=== PATIENT | female | born 1995 | race Caucasian/White ===

== ENCOUNTER 2023-04-23 09:16 | Outpatient (CLI) | payer MEDICAID, SELFPAY ==
[2023-04-23 14:39] LABS: Chlamydia DNA Amplified* NOT DETECTED (No Detected); GC DNA Amplified* NOT DETECTED (No Detected)
== END 2023-04-23 09:17 | disposition home or self-care (01) ==
PROVIDERS: Visit Provider Obstetrics & Gynecology
DX: Z34.93 Encounter for supervision of normal pregnancy, unspecified, third trimester (principal); Z3A.28 28 weeks gestation of pregnancy
CPT/HCPCS: 86592; 86703; 86762; 86803; 86850; 87086; 87340; 87491; 87591

== ENCOUNTER 2023-06-16 11:09 | Outpatient (CLI) | payer MEDICAID, SELFPAY | END 2023-06-16 11:10 | disposition home or self-care (01) | LOC: NFLDREF 06-19 19:58 | PROVIDERS: Visit Provider Obstetrics & Gynecology | DX: Z36.85 Encounter for antenatal screening for Streptococcus B (principal) | CPT/HCPCS: 87081; 87653 ==

== ENCOUNTER 2023-07-03 04:20 | Inpatient (IN) | payer MEDICAID, SELFPAY ==
[2023-07-03] VITALS (29 sets, daily range): BP systolic 111–132; BP diastolic 60–81; PULSE 83–118; RESP 16–18; TEMP 36.4–37.2; O2SAT 98; BMI 33.0
--- NOTE | 2023-07-03 05:39 | P.LDBA_ITS ---
Subjective History of Present Illness Time Seen by Provider: 05:39 Date Seen: 07/03/23 Narrative: Patient is being admitted to Labor and Delivery for PROM. She is a 28 year old at 38 weeks 2 days gestation. Her full history and physical was dictated by Dr. Greene on 06/24/2023. Please see this for details. She states that she woke up at 3:20 a.m. in a pool of fluid. She has noticed contractions that are not particularly painful become frequent since her water broke. She would like to hold off on Pitocin if possible. GBS negative. Specific Issues/Plans [id number] Spouse: Hemant. Son: Rubio Baby: Boy! Greg H&P by [facility] on 06/24/23 UNSTABLE LIE AT 37-38 WEEKS! CHECK PRESENTATION WITH US AT ARRIVAL TO L&D 1. Transfer of care at 24 weeks. * No records regarding labs received. Repeated here 04/23/23, entirely normal. 2. Two first trimester SABs. 3. Last pap 06/05/2020: WNL. Due at her 6 week pp visit. labs: O+ Pap NIL 06/05/20 Ultrasounds: 12/22/22: dating and viability. Eleven weeks, 3 days by CRL. Sonographic NELLIE 07/10/2023. NELLIE by LMP 07/15/2023. Dating by LMP. 02/25/23: anatomy scan. Normal level 1 anatomy, posterior placenta without previa, cervical length 3.6 cm, normal fluid, EFW normal, though percentile not given. 325 g. AC 44.4% and all growth parameters within normal ranges. Tdap: Given, 05/07/23 Flu: declined COVID: declined H&P by [facility] on 06/24/2023 OB - Problem Based A/P Additional Plan (1) PROM (premature rupture of membranes): Status: Acute Plan 1. GBS negative so antibiotic prophylaxis is not needed. 2. Delia is planning an unmedicated delivery. 3. Dr. Alvarado will assume care at 7:00am today. OB Exam Physical Exam Vital signs: Temp Pulse BP 97.7 F 90 125/81 07/03/23 04:19 07/03/23 04:15 07/03/23 04:15 Narrative: GENERAL APPEARANCE: Pleasant, , well-groomed woman in no acute distress. VITAL SIGNS: as noted in nursing notes HEAD: Normocephalic, atraumatic. THYROID: no masses, nodularity, tenderness or enlargement. LUNGS: Clear to auscultation bilaterally without wheezes, rales or rhonchi. HEART: Regular rate and rhythm with normal S1 and S2. No gallop, rub or murmur. ABDOMEN: Gravid. Soft, nontender, nondistended, with normal bowels sounds throughout. EFM: Baseline 130, accelerations present, decelerations absent, reactive. Category 1. TOCO: Q 2-4 minutes patient reports mild. PRESENTATION: Vertex by Vince's maneuvers and bedside ultrasound. SVE per nursin.5 cm/ 50 %/ -2/soft/post. Barajas score: 5 EXTREMITIES: No cyanosis, clubbing, or edema. No varicosities. NEUROLOGIC: Normal gait and balance. Normal deep tendon reflexes at bilateral patella 2+/2, equal without clonus. PSYCHIATRIC: alert and oriented x3. Normal speech pattern, eye contact and affect. SKIN: Warm, dry, and well perfused. Good turgor. No lesions, nodules or rashes.
--- NOTE | 2023-07-03 17:52 | PM.OBPNL ---
Subjective Date Seen: 07/03/23 Narrative: Patient is feeling well and happy with current experience. Objective Vital Signs: Last Vital Signs Temp 98.1 F 07/03/23 16:16 Pulse 118 H 07/03/23 16:17 Resp 18 07/03/23 16:17 BP 132/68 07/03/23 16:16 Pulse Ox 98 07/03/23 11:49 Pelvic Exam Dilation (cm): 3.5 Effacement (%): 80 Station: 0 Contractions Monitor mode: External Contraction pattern: Regular Contraction intensity: Moderate Assessment Station: 0 Tracing Comments: Intermittent monitoring has been normal. Plan Plan: Patient has progressed on her own, she would like to continue labor progress with the least amount of interventions as possible. Would recommend a repeat cervical check at around 8pm.
[2023-07-03] MEDS: LIDOCAINE 1 % PF 30 ML INJECTION (22:25)
--- NOTE | 2023-07-03 22:39 | W.PM.OBVAGDE ---
OB Procedure Vag Delivery Mother Details Mother Details: The patient is a 28 year-old, 2, Para 2, admitted on 07/03/23 at 38 2/7 Days gestation. Patient presents to L&D after SROM at home at around 3am this morning. Patient desired a minimal intervention labor and delivery. She progressed on her own and unmedicated. : 2 Para: 2 Weeks Gestation: 38.2 Admission Date: 07/03/23 Additional Details Amniotic Membrane Status: SROM Amniotic Membrane Rupture Date: 07/03/23 Amniotic Membrane Rupture Time: 03:20 Amniotic Membrane Fluid Description: Clear Analgesia/Anesthesia Type: None Waterbirth: No Pitcoin: No Intrapartal Events: None Labor Onset: 18:36 Complete: 21:57 Pushin:58 Heart: heart tones during second stage in the 140s with intermittent auscultation. Delivery Details Delivery Date: 07/03/23 Delivery Time: 22:16 Route of delivery: Gender: Male Viability: Alive; Heart Rate Present Position at Delivery: OA Delivery Details: Delivered over intact perineum via spontaneous vaginal delivery. was placed on maternal abdomen.? Cord was clamped and cut after a 30-60 second delay. Nose and mouth were bulb suctioned.? Infant weight pending. 1 Minute Interval Total Score: 9 5 Minute Interval Total Score: 9 Additional Details Shoulder Dystocia: No Placenta Delivery Time: 22:21 Placental Delivery Description: Spontaneous Delivery repair: Vicryl Procedure Done: Global Blood Loss: 150 Laceration: Vaginal - 2nd Degree Blood Loss Measurement Type: QBL Bakri Used: No Sponge/Need Count Correct: Yes Cord Vessel Description: 3 Vessels, Nuchal Cord (x2), Around Body (x1) and Delivered through Event Summary Status: Mother and were stable after delivery. Disposition: floor
[2023-07-03] MEDS: CALCIUM CARBONATE 500 MG CHEW PO (23:44)
[2023-07-03] MEDS: ACETAMINOPHEN 500 MG TABLET 1000 MG PO (23:44)
[2023-07-04] VITALS (7 sets, daily range): BP systolic 113–122; BP diastolic 63–84; PULSE 68–96; RESP 16; TEMP 36.5–36.6; O2SAT 97–98
[2023-07-04] MEDS: IBUPROFEN 600 MG TABLET PO ×3 (03:50→19:50)
[2023-07-04] MEDS: ACETAMINOPHEN 500 MG TABLET 1000 MG PO ×3 (07:32→22:23)
[2023-07-04] MEDS: DOCUSATE SODIUM 100 MG CAPSULE PO ×2 (07:33→22:23)
[2023-07-04 08:15] LABS: Hemoglobin* 11.6 gm/dL (12.0-16.0)
--- NOTE | 2023-07-04 10:22 | P.OBPN_ITS ---
OB - PN:Subj Subjective Date Seen: 07/04/23 Patient comments OB post-: no complaints, pain well controlled and tolerating diet infant status: Zwingle feeding status: exclusively Narrative: Delia is a 28 y.o. who was admitted to L & D for delivery after SROM. ?She had an uncomplicated spontaneous vaginal delivery.?The patient feels well. ?The pain is well controlled with current medications. ?She has no new complaints. ?She is and reports things are going well.? the patient has done well.? Vitals have been stable.? She has remained afebrile.? Has a good appetite, is tolerating a general diet. ?She is voiding without difficulty.? She is passing gas and has not had a bowel movement.? She is ambulating and denies any dizziness.? Has small amount of rubra lochia. OB - PN: Obj Exam Physical Exam: Vital signs: Temp Pulse Resp BP Pulse Ox O2 Del Method 97.8 F 68 16 122/65 98 Room Air 07/04/23 08:00 07/04/23 08:00 07/04/23 08:00 07/04/23 08:00 07/04/23 08:00 07/04/23 08:00 Narrative: VITAL SIGNS: As noted above. GENERAL APPEARANCE: Alert, cooperative female in no acute distress. MOOD & AFFECT: Normal. ABDOMEN: Soft, non-distended and appropriately tender, uterus well contracted at umbilicus. : Normal lochia. EXTREMITIES: Nonedematous. Well perfused. Nontender. OB - PN: Obj Data Labs Labs: Laboratory Results - last 24 hr 07/04/23 08:06 Hgb 11.6 L OB - PN: A/P Delivery Assessment and Plan (1) Spontaneous vaginal delivery: Status: Acute Plan day: 1 Plan: routine care
--- NOTE | 2023-07-04 17:39 | PM.OBDSVD1 ---
DS: Providers Provider Date Seen: 07/04/23 Date of admission: 07/03/23 04:20 Primary care physician: Not a Local Provider Admitting Clinician: Akila Greene MD Attending Physician on discharge: Anthony Blackburn MD Date of Discharge: 07/04/23 DS: Diagnosis Discharge Diagnosis (1) Spontaneous vaginal delivery: Status: Acute Exam Narrative: Exam Narrative: GENERAL APPEARANCE:? normal affect, alert, no distress MOOD:? appropriate CHEST:? clear to auscultation HEART:? regular rate and rhythm ABDOMEN:? soft, non-tender the uterine fundus is At Umbilicus, Midline and is appropriate for the stage of recovery. EXTREMITIES:? normal and no edema Const: Vital Signs, click to edit/add: Vital Signs - 24 hr 07/03/23 18:29 07/03/23 19:30 07/03/23 20:00 Temperature 97.5 F L 98.5 F 99.0 F Pulse Rate Pulse Rate [Pulse Oximeter] Respiratory Rate 17 17 Blood Pressure Blood Pressure [Le ft Arm] [facility] 21:00 07/03/23 21:00 07/03/23 22:27 Temperature 98.3 F Pulse Rate 85 116 H Pulse Rate [Pulse Oximeter] Respiratory Rate 18 Blood Pressure 111/60 126/73 Blood Pressure [Le ft Arm] Pulse [facility]xim[facility] 22:42 07/03/23 22:57 07/03/23 23:16 Temperature 98.3 F Pulse Rate 105 H 94 Pulse Rate [Pulse Oximeter] Respiratory Rate 18 Blood Pressure 116/65 120/66 Blood Pressure [Le ft Arm] Pulse Oximetry 98 [facility] 23:17 07/03/23 23:27 07/03/23 23:42 Temperature Pulse Rate 96 96 83 Pulse Rate [Pulse Oximeter] Respiratory Rate Blood Pressure 124/68 120/63 120/68 Blood Pressure [Le ft Arm] Pulse [facility]ximetry [facility] 23:57 07/04/23 00:12 07/04/23 00:27 Temperature Pulse Rate 88 92 96 Pulse Rate [Pulse Oximeter] Respiratory Rate Blood Pressure 114/63 118/66 113/63 Blood Pressure [Le ft Arm] Pulse [facility]ximetry [facility] 07/04/[facility] 03:45 07/04/23 08:00 07/04/23 13:00 Temperature 97.7 F 97.8 F 97.7 F Pulse Rate Pulse Rate [Pulse Oximeter] 90 68 80 Respiratory Rate 16 16 16 Blood Pressure Blood Pressure [Le ft Arm] 114/73 122/65 117/80 Pulse Oximetry 98 98 97 Oxygen Delivery Me thod Room Air Room Air Room Air 07/04/23 16:45 Temperature Pulse Rate Pulse Rate [Pulse Oximeter] 82 Respiratory Rate 16 Blood Pressure Blood Pressure [Le ft Arm] 116/84 Pulse Oximetry 98 Oxygen Delivery Me thod Room Air OB - DS: Summary Hospital Course Hospital Course: The patient is a 28 year old G 2 P 2 at 38 2/7 weeks gestation that was admitted to the Center on 07/03/23 fordelivery after SROM. She had an uncomplicated vaginal delivery. She delivered a viable male infant. She is breast feeding. the patient has done well. Peripartum Data delivery method: Vaginal Laceration description: Vaginal - 2nd Degree complications: none Gender: Male Discharge Plan: Home Status at Discharge Functional status at discharge: independent ambulation Overall status at discharge: patient is progressing back to baseline Time Spent with Patient Time attestation: Total time spent providing and/or coordinating discharge services: Time spent: Less than 30 minutes Discharge Plan Discharge Disposition: Home, Self-Care Date of Admission: 07/03/23 04:20 Attending Provider on Discharge: Prema Blackburn Primary Care Provider: Provider,Not a Local Condition: Stable Anticipated Discharge Date/Time: 07/04/23 23:00 Discharge Medications: New acetaminophen 500 mg Tablet 1,000 mg PO Q6H PRNQty: 30 0RF ibuprofen 600 mg Tablet 600 mg PO Q6H PRNQty: 30 0RF Continued calcium carbonate [Tums] 200 mg calcium (500 mg) tablet,chewable 200 mg PO BID DHA 200 mg capsule 200 mg PO DAILY Discontinued ondansetron HCl 4 mg tablet 4 mg PO Q8H Hold Instructions: not needed Unisom SleepMelts 25 mg tablet,disintegrating 25 mg PO QHS PRN Discharge Orders: Discharge Order (Routine); Ordered 07/04/23 Ordered By: Prema Blackburn Patient Education: OB Vaginal/Breast Feeding Additional Instructions: Follow up in clinic in 2 weeks for mood and follow up. Follow up in clinic in 6 weeks for a regular visit. Activity Level: Activity as Tolerated Activity Detail: Nothing vaginally for 6 weeks Discharge Diet: Regular Follow Up Appointments: Provider,Not a Local [Primary Care Provider] - Forms: [employer] Info Instructions
== END 2023-07-04 23:15 | disposition home or self-care (01) | DRG 807 ==
LOC: OB OUT 04:27 → OB 04:27
PROVIDERS: Obstetrics & Gynecology; Admitting Provider Obstetrics & Gynecology; Visit Provider Obstetrics & Gynecology
DX: O42.02 Full-term premature rupture of membranes, onset of labor within 24 hours of rupture (principal); Z37.0 Single live birth; O70.1 Second degree perineal laceration during delivery; Z3A.38 38 weeks gestation of pregnancy
CPT/HCPCS: 36415; 76815; 85018; A9270; J2001

== ENCOUNTER 2024-05-25 11:13 | Outpatient (CLI) | payer MEDICAID, SELFPAY | END 2024-05-25 11:14 | disposition home or self-care (01) | PROVIDERS: Visit Provider Obstetrics & Gynecology | DX: N93.9 Abnormal uterine and vaginal bleeding, unspecified (principal) | CPT/HCPCS: 80053; 84443; 84703 ==

== ENCOUNTER 2024-07-18 08:03 | Outpatient (CLI) | payer MEDICAID, SELFPAY ==
--- NOTE | 2024-07-18 08:15 | CRLHL7_ITS ---
For Patients: As a result of the Cures Act, medical imaging exams and procedure reports are released immediately into your electronic medical record. You may view this report before your referring provider. If you have questions, please contact your health care provider. INDICATION: First trimester scan, establish dates. COMPARISON: None. TECHNIQUE: Real-time syed-scale imaging of the pelvis was performed. FINDINGS: Sonographic imaging demonstrates a single living intrauterine gestation. The embryo demonstrates a regular cardiac rate measuring 176 beats per minute. The embryo`s crown-rump length measurement of 1.3 cm corresponds to a gestational age of 7 weeks 4 days with a sonographic due date of 03/02/2025. There is a normal-appearing yolk sac. There are no gross abnormalities noted within the embryo at this early state of development. The gestational sac has a normal appearance. There is no evidence of a perigestational hemorrhage. The amount of fluid within the sac appears appropriate for gestational age. The cervix is closed. The myometrium appears normal. The ovaries are of normal size. Corpus luteal cyst left ovary. There are no suspicious fluid collections noted in the cul-de-sac. IMPRESSION: Normal first trimester OB ultrasound exam. Gestational age calculated at 7 weeks 4 days with a sonographic due date of 03/02/2025. Dictated by Albaro Dowling MD @ 07/18/2024 11:48:21 AM (Electronically Signed)
== END 2024-07-18 08:04 | disposition home or self-care (01) ==
LOC: US 08:04
PROVIDERS: Visit Provider Physician Assistant
DX: Z34.91 Encounter for supervision of normal pregnancy, unspecified, first trimester (principal); Z3A.01 Less than 8 weeks gestation of pregnancy
CPT/HCPCS: 76817

== ENCOUNTER 2024-07-18 09:04 | Outpatient (CLI) | payer MEDICAID, SELFPAY | END 2024-07-18 09:05 | disposition home or self-care (01) | PROVIDERS: Visit Provider Physician Assistant | DX: Z34.91 Encounter for supervision of normal pregnancy, unspecified, first trimester (principal); Z3A.08 8 weeks gestation of pregnancy | CPT/HCPCS: 83021; 86592; 86703; 86704; 86706; 86762; 86787; 86803; 86850; 86900; 86901; 87086; 87340 ==

== ENCOUNTER 2024-08-04 09:57 | Outpatient (CLI) | payer MEDICAID, SELFPAY ==
--- NOTE | 2024-08-04 10:00 | CRLHL7_ITS ---
For Patients: As a result of the Century Cures Act, medical imaging exams and procedure reports are released immediately into your electronic medical record. You may view this report before your referring provider. If you have questions, please contact your health care provider. INDICATION: Bleeding COMPARISON: 07/18/2024 TECHNIQUE: Real-time syed-scale imaging of the pelvis was performed. FINDINGS: Intrauterine gestational sac is present measuring 3.1 cm, 8 weeks 2 days. pole is present measuring 1.9 cm, 8 weeks 3 days. No heart tones. Yolk sac measures 2.8 millimeters. No subchorionic hemorrhage. Ovaries unremarkable. No pelvic free fluid. IMPRESSION: Intrauterine demise. Dictated by Albaro Dowling MD @ 08/04/2024 11:03:31 AM (Electronically Signed)
== END 2024-08-04 09:58 | disposition home or self-care (01) ==
LOC: US 09:58
PROVIDERS: Visit Provider Obstetrics & Gynecology
DX: O20.9 Hemorrhage in early pregnancy, unspecified (principal); Z3A.08 8 weeks gestation of pregnancy
CPT/HCPCS: 76817

== ENCOUNTER 2024-12-18 12:16 | Outpatient (CLI) | payer MEDICAID, SELFPAY ==
--- NOTE | 2024-12-18 12:15 | CRLHL7_ITS ---
For Patients: As a result of the Century Cures Act, medical imaging exams and procedure reports are released immediately into your electronic medical record. You may view this report before your referring provider. If you have questions, please contact your health care provider. OB ULTRASOUND FIRST TRIMESTER, TRANSABDOMINAL INDICATION: Dating and viability. TECHNIQUE: Real time syed scale imaging of the fetus was performed. Transabdominal. LMP: 10/09/2024. NELLIE by LMP: 07/16/2025. GA: 10 w, 0 d. Previous US: No. CRL: 3.1 cm. 10 w 0 d. NELLIE: 07/16/2025. FHR: 165 BPM. Gestational sac: 4.6 cm. Appears within normal limits. Yolk sac: 4.7 mm. Appears within normal limits. Right ovary: Within normal limits. 3.0 x 1.8 x 2.2 cm. CL. Left ovary: N/V. IMPRESSION: 1. Single living intrauterine measuring 10 weeks 0 days and sonographic due date 07/16/2025. 2. Inferior subchorionic hemorrhage measures 5 x 13 x 5 mm. 3. Incidental corpus luteal cyst right ovary. Albaro Dowling M.D. Diagnostic Radiologist [email or web address] (Electronically Signed)
== END 2024-12-18 12:17 | disposition home or self-care (01) ==
LOC: US 12:17
PROVIDERS: PCP Family Medicine; Visit Provider Physician Assistant
DX: Z34.91 Encounter for supervision of normal pregnancy, unspecified, first trimester (principal); Z3A.10 10 weeks gestation of pregnancy
CPT/HCPCS: 76801; 76817

== ENCOUNTER 2024-12-18 13:16 | Outpatient (CLI) | payer MEDICAID, SELFPAY | END 2024-12-18 13:17 | disposition home or self-care (01) | PROVIDERS: PCP Family Medicine; Visit Provider Physician Assistant | DX: Z34.91 Encounter for supervision of normal pregnancy, unspecified, first trimester (principal); Z3A.10 10 weeks gestation of pregnancy | CPT/HCPCS: 83020; 83021; 85660; 86592; 86703; 86704; 86706; 86762; 86787; 86803; 86850; 86900; 86901; 87086; 87340 ==